=== PATIENT | female | born 1995 | race Caucasian/White ===

== ENCOUNTER 2016-03-23 21:35 | Emergency (ER) | payer SELFPAY ==
[2016-03-23 22:05] VITALS: TEMP 97.8; BMI 24.0
--- NOTE | 2016-03-23 23:01 | DIRPT ---
CLINICAL DATA: Injury. Patient stepped wrong and twisted the ankle tonight. Medial pain. Pins and needles laterally. EXAM: RIGHT ANKLE - COMPLETE 3+ VIEW COMPARISON: None. FINDINGS: There is no evidence of fracture, dislocation, or joint effusion. There is no evidence of arthropathy or other focal bone abnormality. Soft tissues are unremarkable. IMPRESSION: Negative. Electronically Signed By: Tyrone Loya M.D. On: 03/23/2016 22:58
--- NOTE | 2016-03-23 23:16 | EDPRACDOC ---
- General Information Chief Complaint: Ankle Pain Stated Complaint: ANKLE PAIN Time Seen by Provider: 03/23/16 22:33 Mode of Arrival: Car Home Medications: Home Medications Vits W-Ca,Fe,FA(<1Mg) [] 1 each PO DAILY 01/11/15 Doxylamine/Pyridoxine HCl [Diclegis Dr 10-10 mg Tablet] 1 each PO DAILY Ibuprofen Tablet [Motrin] 800 mg PO TID #30 tab 05/10/15 Oxycodone Immediate Release [Oxycodone Immediate Release Tablet] 5 mg PO Q4H PRN #30 tab 05/10/15 Allergies/Adverse Reactions: Allergies Allergy/AdvReac Type Severity Reaction Status Date / Time No Known Allergies Allergy Verified 05/09/15 17:08 - History of Present Illness Onset: 3 hours [employer] HPI: PT PRESENTS WITH RIGHT LATERAL ANKLE PAIN AFTER TWISTING IT EARLIER TONIGHT. Ankle Problem Location: Reports: Right, Lateral Mechanism: Reports: Inversion Able to Bear Weight: Limited Pain Severity: Reports: Moderate Associated Signs & Symptoms: Reports: Bruising, Swelling. Denies: Foot Pain, Leg Pain, Knee Pain ED Past Medical History - History Reviewed Yes Nurses notes reviewed and agree except as marked - Patient Medical History Respiratory History: Denies: Asthma GI/ History: Denies: Urinary Tract Infection Psychological History: Denies: Depression, Anxiety, Bipolar Disorder Systemic History: Denies: Anemia Surgical History: Denies: Hysterectomy - Family Medical History Denies: Hypertension, Diabetes, Cancer, Stroke, Cardiac Disorders - Social Medical History Smoking Status: Never smoker Social History: Denies: Amphetamine Use, Barbiturate Use, Benzodiazipine Use, Cocaine Use, Heroin Use Lives In: Home EDM Review of Systems - Review of Systems ROS Negative Except as Marked: Yes All systems reviewed and were negative except as marked Musculoskeletal: Ankle (RIGHT LATERAL ANKLE PAIN AFTER INVERSION INJURY) - Physical Exam Constitutional: Alert Oriented to: Time, Person, Place Last recorded Vital Signs: Last Vital Signs Temp 97.8 F 03/23/16 22:01 Pulse 64 03/23/16 22:01 Resp 20 03/23/16 22:01 BP 111/67 03/23/16 22:01 Pulse Ox 97 03/23/16 22:01 Oxygen Pulse Oxygen Saturation 97 O2 Device Room Air Oxygen Flow Rate Fraction of Inspired Oxygen ( FIO2) - HEENT Head: negative: Deformity, Laceration Eye Exam: negative: Conjunctival Injection, Pale Conjunctiva Nose: negative: Congestion, Discharge Neck: negative: Limited ROM - Integumentary Skin: Warm, Dry - Neurologic Memory Impaired: Normal Motor Function: Normal Mood Description: Anxious Thought: Coherent Perception: Normal ED Ankle Problem Phys Exam - Musculoskeletal Ankle: Swelling (RIGHT LATERAL), Mild Tenderness Achilles Tendon: Normal Lower Leg: Normal Foot: Normal Distal Function/Circulation: Normal - Integumentary Skin: Ecchymosis (RIGHT LATERAL) Decision Time to Discharge: 23:16 - Departure Yes I personally saw and evaluated the patient. Disposition: Home Condition: Stable Final Diagnosis: Ankle Sprain Instructions: RICE: Routine Care for Injuries, Ankle Sprain (ED) Education/Counseling Given To: Patient Education/Counseling Given Regarding: Diagnosis, Treatment, Prognosis, Follow Up Referrals: None,No Provider [Primary Care Provider] - One Week Additional Instructions: WEIGHT BEAR TOLERATED. MOTRIN NEEDED FOR PAIN.
[2016-03-23 23:23] VITALS: BP 116/66
[2016-03-23 23:28] VITALS: PULSE 66
== END 2016-03-23 23:27 | disposition home or self-care (01) ==
LOC: ED 21:35
DX: S93.401A Sprain of unspecified ligament of right ankle, initial encounter (principal); X58.XXXA Exposure to other specified factors, initial encounter; Y93.9 Activity, unspecified
CPT/HCPCS: 99283